=== PATIENT | female | born 2000 | race African-American/Black ===

== ENCOUNTER 2019-01-02 04:57 | Emergency (ER) | payer OTHER, SELFPAY ==
--- NOTE | 2019-01-02 10:29 | RAD ---
PA AND LATERAL CHEST: Date: 01/02/19 HISTORY: Cough and congestion. FINDINGS: The heart size appears slightly enlarged. Mediastinal structures are unremarkable. Lungs are clear of infiltrates. IMPRESSION: Minimal cardiomegaly. POS: C
== END 2019-01-02 07:50 | disposition home or self-care (01) ==
LOC: ERS 04:57
DX: J20.9 Acute bronchitis, unspecified (principal); J06.9 Acute upper respiratory infection, unspecified
CPT/HCPCS: 71046